=== PATIENT | male | born 1965 | race Caucasian/White ===

== ENCOUNTER 2018-10-02 19:55 | Emergency (ER) | payer OTHER ==
[2018-10-02] MEDS ORDERED: Acetaminophen 500 MG TAB ONE (20:37)
--- NOTE | 2018-10-02 21:30 | ULT ---
US Venous Doppler Lt Unilat History: [Pain. Edema. Redness.] Comparison: None. Findings: Real-time grayscale, color, and spectral analysis of the left lower extremity venous system was performed. The common femoral, femoral, proximal portions greater saphenous and deep femoral veins as well as the popliteal and posterior tibial veins were interrogated. Normal flow, augmentation, and compression. Impression: No deep venous thrombosis.
== END 2018-10-02 21:46 | disposition home or self-care (01) ==
LOC: ERS 19:55
DX: M79.89 Other specified soft tissue disorders (principal); B20 Human immunodeficiency virus [HIV] disease

== ENCOUNTER 2018-10-28 17:21 | Emergency (ER) | payer OTHER ==
--- NOTE | 2018-10-28 17:40 | RAD ---
Exam: XR Ankle Lt 3 View STANDARD HISTORY: Left ankle pain since twisting injury 2 days ago. COMPARISON: None FINDINGS: There is subcutaneous soft tissue swelling seen about the ankle bilaterally. No acute fracture, dislocation, or other acute osseous abnormality is identified. A plantar calcaneal enthesophyte is identified. Vascular calcifications are seen in the region of the tibial peroneal vessels. IMPRESSION: Subcutaneous soft tissue swelling without evidence of an acute osseous abnormality.
[2018-10-28 18:44] LABS: #Eosinphils 0.1 thou/uL (0.0-0.7); #Lymphocytes 1.7 thou/uL (1.20-3.40); #Monocytes 1.5 thou/uL (0.11-0.59); #Neutrophils 10.6 thou/uL (1.40-6.50); %Basophils 0.2 % (0.0-1.0); %Eosinophils 0.5 % (0.0-10.0); %Lymphocytes 12.1 % (21.0-51.0); %Monocytes 10.6 % (0.0-10.0); %Neutrophils 76.7 % (42.0-75.0); Hemoglobin 12.8 g/dL (14.0-18.0); Mean Corpuscular Hemoglobin 34.4 pg (27.0-31.0); Mean Platelet Volume 7.4 fL (7.4-10.4); Platelet Count 245 thou/uL (130-400); RBC Distribution Width 11.9 % (11.5-14.5); Red Blood Cell (RBC) Count 3.73 mill/uL (4.70-6.10); White Blood Cell (WBC) Count 13.9 thou/uL (4.8-10.8)
[2018-10-28 19:10] LABS: ALT (SGPT) 32 U/L (8-55); AST (SGOT) 19 U/L (5-34); Albumin 4.2 g/dL (3.5-5.0); Alkaline Phosphatase 70 U/L (40-150); Anion Gap 13 mmol/L (10-20); BUN (Urea Nitrogen) 19 mg/dL (8.4-25.7); Bilirubin, Total 0.4 mg/dL (0.2-1.2); Calc. Creatinine Clearance 0 mL/min (70-130); Calcium 9.6 mg/dL (7.8-10.44); Carbon Dioxide 22 mmol/L (22-29); Chloride 107 mmol/L (98-107); Estimated GFR-MDRD Greater than 90; Globulin 2.8 g/dL (2.4-3.5); Glucose 141 mg/dL (70-105); Potassium 3.7 mmol/L (3.5-5.1); Sodium 138 mmol/L (136-145)
--- NOTE | 2018-10-28 20:25 | ULT ---
EXAM: Left lower extremity venous Doppler HISTORY: left lower extremity edema and pain FINDINGS: Grayscale, color-flow, Doppler evaluation, spectral analysis of the left lower extremity venous struc tures is performed with 2-D imaging. The left common femoral, superficial femoral, popliteal, posterior tibial, proximal greater saphenous and profunda femoral veins are imaged. There is increased luminal echogenicity seen within the left lower extremity popliteal vein with decr eased lumen compressibility present. Color flow evaluation does demonstrate flow within the left popliteal vein. The remaining visualized deep venous structures left lower extremity demonstrate normal lumen jostin sibility and flow. IMPRESSION: 1. Nonocclusive DVT left lower extremity popliteal vein. 2. These findings were discussed with Agustina, the emergency department nurse by the technology officer vitaly at the termination of this examination.
[2018-10-28] MEDS ORDERED: Enoxaparin Sodium 100 MG/ML SYRINGE ONE (20:42)
[2018-10-28] MEDS ORDERED: Enoxaparin Sodium 30 MG/0.3 ML SYRINGE ONE (20:42)
[2018-10-28] MEDS ORDERED: Enoxaparin Sodium 40 MG/0.4 ML SYRINGE ONE (20:44)
[2018-10-28] MEDS ORDERED: Enoxaparin Sodium 60 MG/0.6 ML SYRINGE ONE (20:45)
== END 2018-10-28 21:07 | disposition home or self-care (01) ==
LOC: ERS 17:21
DX: I82.402 Acute embolism and thrombosis of unspecified deep veins of left lower extremity (principal); L03.116 Cellulitis of left lower limb; B20 Human immunodeficiency virus [HIV] disease
CPT/HCPCS: 36415; 80053; 83605; 85025; 85652; 86140; 96372; J1650

== ENCOUNTER 2019-01-06 14:42 | Emergency (ER) | payer OTHER ==
--- NOTE | 2019-01-06 18:30 | ULT ---
Left lower extremity venous duplex exam: HISTORY: Left leg pain and swelling. History of DVT. COMPARISON: None. FINDINGS: Real-time color Doppler evaluation of left lower extremity was performed from groin to calf . This includes evaluation the common femoral superficial and profunda femoral, saphenous, popliteal and posterior tibial veins. This shows a patent deep venous system. There is normal jostin sibility and augmentation. There is no evidence of DVT. IMPRESSION: No evidence of DVT of the left lower extremity.
[2019-01-06 19:14] LABS: #Eosinphils 0.2 thou/uL (0.0-0.7); #Lymphocytes 2.4 thou/uL (1.20-3.40); #Monocytes 0.9 thou/uL (0.11-0.59); #Neutrophils 5.9 thou/uL (1.40-6.50); %Eosinophils 1.8 % (0.0-10.0); %Monocytes 9.2 % (0.0-10.0); %Neutrophils 63.1 % (42.0-75.0); Hemoglobin 13.5 g/dL (14.0-18.0); Mean Corpuscular HGB CONC 33.8 g/dL (32.0-36.0); Mean Corpuscular Hemoglobin 33.3 pg (27.0-31.0); Mean Corpuscular Volume 98.4 fL (78.0-98.0); Mean Platelet Volume 6.9 fL (7.4-10.4); Platelet Count 267 thou/uL (130-400); RBC Distribution Width 12.7 % (11.5-14.5); Red Blood Cell (RBC) Count 4.05 mill/uL (4.70-6.10); White Blood Cell (WBC) Count 9.3 thou/uL (4.8-10.8)
[2019-01-06 19:34] LABS: ALT (SGPT) 47 U/L (8-55); AST (SGOT) 23 U/L (5-34); Albumin 4.4 g/dL (3.5-5.0); Alkaline Phosphatase 68 U/L (40-150); Anion Gap 13 mmol/L (10-20); BUN (Urea Nitrogen) 21 mg/dL (8.4-25.7); Bilirubin, Total 0.4 mg/dL (0.2-1.2); Calc. Creatinine Clearance 0 mL/min (70-130); Calcium 9.8 mg/dL (7.8-10.44); Carbon Dioxide 26 mmol/L (22-29); Chloride 103 mmol/L (98-107); Estimated GFR-MDRD 88; Globulin 3.2 g/dL (2.4-3.5); Glucose 109 mg/dL (70-105); Potassium 4.1 mmol/L (3.5-5.1); Protein, Total 7.6 g/dL (6.0-8.3); Sodium 138 mmol/L (136-145)
[2019-01-06 19:59] LABS: Bilirubin Negative (Negative); Blood, Urine Negative (Negative); Clarity Clear (Clear); Glucose, Urine (Dipstick) Normal (Negative); Leukocyte Negative Leu/uL (Negative); Nitrite Negative (Negative); Protein, Urine (Dipstick) 10 mg/dL (Neg-Trace); Urobilinogen 3 mg/dL (Less than 2)
== END 2019-01-06 20:22 | disposition home or self-care (01) ==
LOC: ERS 14:42
DX: M79.89 Other specified soft tissue disorders (principal); E11.9 Type 2 diabetes mellitus without complications; B20 Human immunodeficiency virus [HIV] disease; Z79.01 Long term (current) use of anticoagulants; Z79.899 Other long term (current) drug therapy; Z79.84 Long term (current) use of oral hypoglycemic drugs
CPT/HCPCS: 36415; 80053; 81003; 85025

== ENCOUNTER 2019-01-10 11:34 | Outpatient (CLI) | payer OTHER ==
--- NOTE | 2019-01-10 13:00 | ULT ---
EXAM: Bilateral upper extremity venous Doppler HISTORY: Bilateral arm and facial edema/swelling. FINDINGS: Grayscale, color-flow, Doppler evaluation, spectral analysis of the bilateral upper extremities venou s structures is performed with 2-D imaging. There is normal flow seen in the bilateral subclavian veins with normal lumen compressibility and flow seen within the bilateral internal jugular, axillary , and brachial veins. Flow is demonstrated in the bilateral ulnar and radial veins. Normal luminal compressibility and flow is seen within the bilateral upper extremity basilic and ceph alic veins. IMPRESSION: No evidence of a deep vein thrombosis in the visualized deep venous structures bilateral upper extrem ities.
== END 2019-01-10 11:35 | disposition home or self-care (01) ==
LOC: ULT 11:34
DX: R22.0 Localized swelling, mass and lump, head (principal)
CPT/HCPCS: 93970

== ENCOUNTER 2019-03-14 11:35 | Outpatient (CLI) | payer OTHER ==
--- NOTE | 2019-03-14 13:11 | CT ---
CT LEFT HIP: DATE: 03/14/2019. PROVIDED CLINICAL HISTORY: Left hip pain, arthritis. FINDINGS: There is diffuse joint space loss involving the left hip. There is multifocal articular cortical irr egularity and subchondral sclerosis with multiple subchondral cysts present. There is no gross osteo lytic change. There is mild acetabular protrusio. Osteophytes are seen about the hip. There is no evidence for a fracture. There is moderate left hip capsular distention. There is mild fatty infiltration involving the lateral and distal aspects of the left gluteus medius muscle. Vascular calcifications are seen. No lytic or blastic lesions of concern are evident. 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 POS: OFF
--- NOTE | 2019-03-14 16:02 | CT ---
CT guided left hip aspiration HISTORY: Bacterial arthritis. FINDINGS: After explaining the procedure and answering all questions, limited CT imaging the pelvis w as performed. Sterile technique, buffered local anesthesia, CT guidance, and a left anterolateral approach were used to carefully advance the tip of a 17-gauge trocar needle to the small pocket of fl uid at the left hip joint space. The needle was carefully guided immediately lateral to the common femoral artery, taking great care to avoid the femoral nerve. The needle was gently maneuvered in the area of joint fluid with vigorous aspiration. Approximately 1 cc of bloody liquid was aspirated and sent to laboratory for analysis. No additional fluid was able to be obtained. Needle was removed. Patient tolerated the procedure well and was dismissed in go od condition. IMPRESSION: Technically successful CT-guided aspiration left hip joint fluid. Pathology is pending.
== END 2019-03-14 11:36 | disposition home or self-care (01) ==
LOC: CT 11:35 → SDC 11:36
PROVIDERS: ATTEND Orthopaedic Surgery
DX: M00.852 Arthritis due to other bacteria, left hip (principal); M16.12 Unilateral primary osteoarthritis, left hip; M00.9 Pyogenic arthritis, unspecified; M25.852 Other specified joint disorders, left hip
CPT/HCPCS: 77012; 87070; 87205

== ENCOUNTER 2019-03-15 07:45 | Inpatient (IN) | payer OTHER ==
[2019-03-15 08:11] LABS: #Basophils 0.1 thou/uL (0.0-0.2); #Eosinphils 0.4 thou/uL (0.0-0.7); #Lymphocytes 4.1 thou/uL (1.20-3.40); #Monocytes 1.1 thou/uL (0.11-0.59); #Neutrophils 3.9 thou/uL (1.40-6.50); %Eosinophils 4.3 % (0.0-10.0); %Lymphocytes 42.8 % (21.0-51.0); %Monocytes 11.1 % (0.0-10.0); %Neutrophils 40.8 % (42.0-75.0); Hemoglobin 14.2 g/dL (14.0-18.0); Mean Corpuscular HGB CONC 33.2 g/dL (32.0-36.0); Mean Corpuscular Hemoglobin 32.7 pg (27.0-31.0); Mean Corpuscular Volume 98.3 fL (78.0-98.0); Mean Platelet Volume 7.6 fL (7.4-10.4); Platelet Count 264 thou/uL (130-400); RBC Distribution Width 12.4 % (11.5-14.5); Red Blood Cell (RBC) Count 4.33 mill/uL (4.70-6.10); White Blood Cell (WBC) Count 9.6 thou/uL (4.8-10.8)
[2019-03-15] MEDS ORDERED: Nitroglycerin 2% Ointment 1 INCH/1 GM Packet ONE (08:11)
[2019-03-15] MEDS ORDERED: Lorazepam 2 MG/ML VIAL ONE (08:11)
[2019-03-15] MEDS ORDERED: Aspirin Chewable 81 MG TAB ONE (08:11)
--- NOTE | 2019-03-15 08:17 | RAD ---
RADIOGRAPH CHEST 1 VIEW: DATE: 03/15/2019 HISTORY: 54-year-old male with chest pain and dyspnea. FINDINGS: There is no airspace density, pulmonary edema, or pneumothorax. The lateral costophrenic angles are n ot effaced. IMPRESSION: No acute pulmonary findings.
[2019-03-15] MEDS ORDERED: Lorazepam 2 MG/ML VIAL SLOW IVP SCH (08:30)
[2019-03-15] MEDS ORDERED: Nitroglycerin 2% Ointment 1 INCH/1 GM Packet TOP SCH (08:30)
[2019-03-15] MEDS ORDERED: Aspirin 325 MG TAB PO SCH (08:30)
[2019-03-15] MEDS ORDERED: Piperacillin/Tazobactam 4.5 GM VIAL ONE (08:33)
[2019-03-15 08:34] LABS: ALT (SGPT) 17 U/L (8-55); AST (SGOT) 16 U/L (5-34); Albumin 4.4 g/dL (3.5-5.0); Alkaline Phosphatase 86 U/L (40-110); Anion Gap 16 mmol/L (10-20); BUN (Urea Nitrogen) 16 mg/dL (8.4-25.7); Bilirubin, Total 0.6 mg/dL (0.2-1.2); Calc. Creatinine Clearance 0 mL/min (70-130); Calcium 9.9 mg/dL (7.8-10.44); Carbon Dioxide 21 mmol/L (22-29); Chloride 107 mmol/L (98-107); Estimated GFR-MDRD 72; Globulin 3.5 g/dL (2.4-3.5); Glucose 121 mg/dL (70-105); Potassium 3.8 mmol/L (3.5-5.1); Protein, Total 7.9 g/dL (6.0-8.3); Sodium 140 mmol/L (136-145)
--- NOTE | 2019-03-15 09:28 | CT ---
CT ANGIOGRAM THORAX WITH CONTRAST: (CTA pulmonary angiogram) DATE: 03/15/2019 HISTORY: 54-year-old male with elevated d-dimer and chest pain with diaphoresis. TECHNIQUE: IV injection of iodinated contrast. Scan acquisition timing attempted to coincide with iodinated contrast bolus reaching maximal density in pulmonary arteries. 3-D MIP reconstructions. FINDINGS: Mediastinal lipomatosis. Trachea and bilateral mainstem bronchi are patent and clear. No thoracic aor tic aneurysm or dissection. Bilateral pericardial fat pads. No pleural effusion or pneumothorax. No consolidation. Multiple slightly enlarged scattered mediastinal lymph nodes, nonspecific. No hilar ly mphadenopathy. No evidence of pulmonary thromboembolism. IMPRESSION: 1) no pulmonary thromboembolism. 2) no acute findings. 3) mediastinal lipomatosis.
[2019-03-15] MEDS ORDERED: ISOVUE-370 76%-LOCM 1 ML ONE (12:34)
[2019-03-15] MEDS ORDERED: Acetaminophen 325 MG TAB PO PRN (12:43)
[2019-03-15] MEDS ORDERED: Ondansetron ODT 4 MG TAB SL PRN (12:43)
[2019-03-15] MEDS ORDERED: Ondansetron PF 4 MG/2 ML Vial IVP PRN (12:43)
[2019-03-15 13:07] LABS: Troponin I 0.668 ng/mL (< 0.028)
[2019-03-15 13:12] VITALS: BMI 32.1
[2019-03-15] MEDS ORDERED: Enoxaparin Sodium 100 MG/ML SYRINGE SC SCH ×2 (14:00→21:00)
[2019-03-15] MEDS ORDERED: Enoxaparin Sodium 120 MG/0.8 ML SYRINGE SC SCH (14:00)
[2019-03-15 15:23] LABS: Troponin I 1.213 ng/mL (< 0.028)
[2019-03-15] MEDS ORDERED: Nitroglycerin 0.4 MG TAB (25 Tab Bottle) SL PRN (15:25)
[2019-03-15] MEDS: Morphine 4 MG/ML VIAL SLOW IVP PRN (16:14)
[2019-03-15] MEDS ORDERED: Morphine 4 MG/ML VIAL SLOW IVP SCH ×2 (19:15→19:30)
[2019-03-15] MEDS: Nitroglycerin 2% Ointment 1 INCH/1 GM Packet TOP SCH (19:41)
[2019-03-15] MEDS: Enoxaparin Sodium 120 MG/0.8 ML SYRINGE SC SCH (20:43)
--- NOTE | 2019-03-15 21:09 | HP ---
PRIMARY CARE PHYSICIAN: Dr. Basurto in [place]. CHIEF COMPLAINT: Chest pain. HISTORY OF PRESENT ILLNESS: Mr. Ramirez is a 54-year-old man with a past medical history of diabetes mellitus type 2; HIV that he does not want his family knowing about; DVT; who had presented to the ED earlier today due to chest pain that had started around 7:00 a.m. this morning. He states once the chest pain came on, he had become diaphoretic and is slightly lightheaded. He states that the pain came on suddenly and had felt more of a pressure or similar to someone pushing on his chest. His initial workup included a portable chest x-ray, which was found to be normal. He also underwent a CTA of the chest, which showed no pulmonary thromboembolism or no acute findings at this time. The patient's initial troponin was found to be normal at less than 0.010, however, this had trended out and actually trended up to 0.668 and then to 1.213. At that time, the patient was then given IV Lovenox 1 mg/kg x1, and he was treated with topical nitroglycerin and aspirin in the ED. The patient's symptoms slowly improved over the next 30 minutes and now, the patient is currently stable. His blood pressure and other vital signs remained stable, and currently, the patient denies fever, chills, headache, blurred vision, dizziness, palpitations, shortness of breath, abdominal pain, nausea, or vomiting. He does appear to have slight chest discomfort; however, this has been improving. REVIEW OF SYSTEMS: All other systems reviewed and found to be negative unless mentioned in the HPI. PAST MEDICAL HISTORY: DVT that was treated recently, and currently he is off all anticoagulation, diabetes mellitus type 2, and HIV, which is currently under treatment. The patient is compliant with treatment, however, does not want his family knowing. PAST SURGICAL HISTORY: Left wrist ORIF, right leg surgery, and reconstruction of his left ear. The patient was scheduled for a total knee replacement on 03/25/2019. PSYCHIATRIC HISTORY: None. SOCIAL HISTORY: The patient lives at home with his family. Denies any alcohol, tobacco, or illicit drug use. KNOWN ALLERGIES: No known drug allergies. CURRENT HOME MEDICATIONS: 1. Finasteride 5 mg daily. 2. Tivicay 50 mg daily. 3. Prezista 800 mg daily. 4. Furosemide 20 mg daily as needed for edema. 5. ProAir HFA inhaler 2 puffs inhalation every 4 to 6 hours as needed for shortness of breath or wheezing. 6. Norvir 100 mg once daily. 7. B-complex one tablet oral 3 times daily. PHYSICAL EXAMINATION: VITAL SIGNS: Blood pressure 128/92, pulse 81, respirations 18, temperature 98.2, O2 saturation 98% on room air. GENERAL: The patient is awake, alert, and oriented x3. He is currently lying comfortably in bed and in no acute distress. His family is at bedside. HEENT: Atraumatic and normocephalic. Pupils are round reactive to light. Extraocular muscles intact. Moist mucous membranes noted. NECK: Soft and supple. Trachea midline. CARDIOVASCULAR: Positive S1 and S2. Regular rate and rhythm. No murmur auscultated. RESPIRATORY: Clear to auscultation bilaterally. No wheezes, rales, or rhonchi. ABDOMEN: Soft, nontender. Bowel sounds present. MUSCULOSKELETAL: Moves all extremities equal. Pedal and radial pulses 2+ bilaterally. No edema noted. NEUROLOGIC: Cranial nerves 2 through 12 grossly intact. No focal deficits noted. Speech intact and normal. Gait not assessed. SKIN: Warm, dry, and intact. No rashes. No ulceration noted. PSYCHIATRIC: Good mood and affect. LABORATORY DATA: WBC 9.6, RBC 4.33, hemoglobin 14.2, hematocrit 42.6, platelets 264. D-dimer 1.50. Sodium 140, potassium 3.8, anion gap 16, BUN 16, creatinine 1.07, estimated GFR 72, glucose 121, AST 16, ALT 17. Troponin less than 0.010, 0.668, and 1.213. DIAGNOSTIC IMAGING: Portable chest x-ray showed no acute pulmonary findings. CTA of chest showed no pulmonary thromboembolism with no acute findings. ASSESSMENT AND PLAN: 1. [id number] myocardial infarction. The patient's cardiac enzymes have been trending upward with the last being 1.2. The patient was treated with a full dose of Lovenox 1 mg/kg. He was given a full dose aspirin and nitroglycerin in the ED. We will also maintain the patient with sublingual nitroglycerin as needed for any further chest pain. We will also give him some IV morphine as needed for any breakthrough pain. We will monitor blood pressure and other vital signs closely and a consult for Dr. Luu was placed at this time. His EKG is showing normal sinus rhythm. 2. History of diabetes mellitus type 2, currently not on any home medications for this. He states he used to in the past, however, has not needed it. 3. History of human immunodeficiency virus, currently undergoing treatment. He does not want his family knowing about this diagnosis and he asks us to not tell them. 4. Deep venous thrombosis and gastrointestinal prophylaxis. CODE STATUS: Full code. DISPOSITION: Pending further workup, clinical findings. Job ID: [id number]
[2019-03-16] MEDS: Morphine 4 MG/ML VIAL SLOW IVP PRN ×4 (00:16→20:27)
[2019-03-16] MEDS: Nitroglycerin 2% Ointment 1 INCH/1 GM Packet TOP SCH ×3 (05:06→18:53)
[2019-03-16 05:48] LABS: #Basophils 0.1 thou/uL (0.0-0.2); #Eosinphils 0.4 thou/uL (0.0-0.7); #Lymphocytes 2.3 thou/uL (1.20-3.40); #Monocytes 0.9 thou/uL (0.11-0.59); #Neutrophils 4.2 thou/uL (1.40-6.50); %Basophils 0.8 % (0.0-1.0); %Eosinophils 5.1 % (0.0-10.0); %Lymphocytes 29.3 % (21.0-51.0); %Monocytes 11.9 % (0.0-10.0); %Neutrophils 52.9 % (42.0-75.0); Hemoglobin 14.2 g/dL (14.0-18.0); Mean Corpuscular HGB CONC 33.7 g/dL (32.0-36.0); Mean Corpuscular Hemoglobin 33.4 pg (27.0-31.0); Mean Corpuscular Volume 99.1 fL (78.0-98.0); Mean Platelet Volume 7.6 fL (7.4-10.4); Platelet Count 231 thou/uL (130-400); RBC Distribution Width 12.4 % (11.5-14.5); Red Blood Cell (RBC) Count 4.26 mill/uL (4.70-6.10); White Blood Cell (WBC) Count 7.8 thou/uL (4.8-10.8)
[2019-03-16 06:10] LABS: Anion Gap 16 mmol/L (10-20); BUN (Urea Nitrogen) 13 mg/dL (8.4-25.7); Calc. Creatinine Clearance 160 mL/min (70-130); Calcium 9.6 mg/dL (7.8-10.44); Carbon Dioxide 19 mmol/L (22-29); Cardiac Risk 5.4 (Less than 4.5); Chloride 107 mmol/L (98-107); Cholesterol 210 mg/dl (< 200 Desired); Estimated GFR-MDRD Greater than 90; Glucose 92 mg/dL (70-105); HDL Cholesterol 39 mg/dL (>60 Neg Risk); LDL Cholesterol, Calculated 152 mg/dL; Potassium 4.2 mmol/L (3.5-5.1); Sodium 138 mmol/L (136-145); Triglycerides 94 mg/dL (Less than 150)
[2019-03-16] MEDS ORDERED: FLU VACC QS2019-20(6MOS UP)/PF 60 MCG/0.5 ML SYRINGE IM ONE (07:30)
[2019-03-16] MEDS: Enoxaparin Sodium 120 MG/0.8 ML SYRINGE SC SCH ×2 (09:52→20:09)
[2019-03-16] MEDS ORDERED: Communication Order-Pharmacy FS SCH (10:15)
--- NOTE | 2019-03-16 11:50 | CON ---
DATE OF CONSULTATION: HISTORY: Boubacar Ramirez is a 54-year-old Latin-[place] male, who presented yesterday with chest discomfort. He denies any previous episodes of chest pain. At 7:00 a.m. yesterday morning, he had intense chest pressure associated with diaphoresis, shortness of breath, and nausea. In the emergency room, he was given Ativan 1 mg IV, nitropaste 1 inch, and 324 mg of chewable aspirin. His chest discomfort gradually subsided. Since admission, he occasionally has some episodes of chest discomfort that are short lived. He has been found to have abnormal troponin I. He underwent CTA of the chest, which revealed no evidence of pulmonary thromboembolism. His pain lasted approximately 30 minutes. PAST MEDICAL HISTORY: Deep venous thrombosis of the left leg diagnosed in October 2018. He was placed on Eliquis 5 mg b.i.d. and was treated for his DVT for approximately 3 months and the Eliquis was stopped. He has diabetes. HIV, which he does not wish his family to know about and is currently under treatment. PAST SURGICAL HISTORY: Left wrist ORIF, right leg surgery, reconstruction of left ear. He is scheduled for a left total hip replacement on March 25, 2019. SOCIAL HISTORY: He does not smoke or drink. FAMILY HISTORY: Both mother and father have myocardial infarctions. MEDICATIONS: 1. Norvir 250 b.i.d. 2. Folgard tablet daily. 3. Prezista one tab at bedtime. 4. Finasteride 5 mg daily. 5. Furosemide 20 mg daily p.r.n. 6. ProAir inhaler 2 puffs q.4-6 hours p.r.n. REVIEW OF SYSTEMS: Twelve-point review of systems is otherwise unremarkable. PHYSICAL EXAMINATION: VITAL SIGNS: Blood pressure 106/66, pulse of 84. HEENT: PERRL. NECK: Supple. CHEST: Clear. CARDIAC: S1 and S2 normal without any S3, S4, or murmurs. Carotid upstrokes normal without bruits. ABDOMEN: Normal bowel sounds without tenderness. EXTREMITIES: Revealed no clubbing, cyanosis, or edema. NEUROLOGIC: Grossly intact. SKIN: Warm and dry. LABORATORY DATA: EKG revealed normal sinus rhythm with left axis deviation and probable old inferior infarction with Q-waves in III and aVF. Hemoglobin 14.2, hematocrit 42.2, white count 7800, and platelets 231,000. D-dimer 1.50. Sodium 138, potassium 4.2, chloride 107, carbon dioxide 19, BUN 13, and creatinine 0.85. Troponin I is up to 1.213. Cholesterol 210, triglycerides 94, HDL 39, and LDL 152. IMPRESSION: 1. Moh-EK-wamfkfrms myocardial infarction. He has developed some T-wave changes on the monitor and another EKG will be repeated. 2. Diabetes. 3. Hypercholesterolemia, newly diagnosed. 4. Positive family history. 5. Human immunodeficiency virus, which the patient does not wish the family to know about. 6. History of deep venous thrombosis of left popliteal vein, treated for approximately 3 months with Eliquis. He is off that now. 7. The patient is scheduled for left total hip replacement on March 25, 2019, which obviously will be delayed. PLAN: The patient will be started on atorvastatin 40 mg daily. Ecotrin one daily in that he did not get a dose today but only when he came to the ER yesterday. He continues to intermittently have very mild chest discomfort and his nitropaste will be increased to 2 inches q.6 hours. EKG will be repeated. It is recommended that he undergo cardiac catheterization in the morning. Risks and benefits discussed with the patient's family including , myocardial infarction, dye reaction, vascular injury, CVA, transfusion, limb loss, renal loss, etc. We discussed vascular dementia and possible need for surgery, etc. We discussed stent placement with additional risk of , myocardial infarction, emergent CABG, restenosis, stent thrombosis, vessel perforation, etc. Since he wishes left total hip replacement in the near future, only a bare-metal stent will be placed to limit his amount of time that he would need Plavix. He understands and agrees to proceed. Job ID: [id number] MTDD
[2019-03-16] MEDS: Acetaminophen 325 MG TAB PO PRN ×2 (15:00→18:53)
[2019-03-16] MEDS ORDERED: Prevnar 13-Val Conj/PF 0.5 ML SYRINGE IM ONE (15:15)
--- NOTE | 2019-03-16 17:55 | PDOC.HOSPP ---
- Subjective Encounter Date: 03/16/19 Encounter Time: 08:00 Subjective: Pt seen for followup re: NSTEMI. Reports chest pain is better. - Objective Vital Signs & Weight: Vital Signs (12 hours) Temp Pulse Resp BP Pulse Ox 03/16/19 15:13 98.8 F 87 14 117/64 95 03/16/19 11:36 98.5 F 89 14 115/67 94 L 03/16/19 08:00 98 03/16/19 07:41 98.5 F 84 14 106/66 98 Weight Weight 250 lb 6.4 oz Result Diagrams: 03/16/19 05:20 03/16/19 05:20 Additional Labs: labs and MARs reviewed by me EKG Reviewed by me: Yes (Tele: NSR) Hospitalist ROS - Review of Systems Respiratory: reports: SOB with excertion Cardiovascular: reports: chest pain. denies: palpitations, orthopnea, paroxysmal noc. dyspnea, edema, light headedness Gastrointestinal: denies: nausea, vomiting, abdominal pain, diarrhea, constipation, melena, hematochezia - Medication Medications: Active Medications Generic Name Dose Route Start Last Admin Trade Name Freq PRN Reason Stop Dose Admin Acetaminophen 650 mg 03/16/19 14:12 03/16/19 15:00 Tylenol PO 650 mg Q4H PRN Administration Headache/Fever or Pain Enoxaparin Sodium 110 mg 03/15/19 21:00 03/16/19 09:52 Lovenox SC 03/16/19 23:59 110 mg BID TATE Administration Morphine Sulfate 4 mg 03/15/19 15:25 03/16/19 15:07 Morphine SLOW IVP 4 mg Q4H PRN Administration Pain Nitroglycerin 0.4 mg 03/15/19 15:25 03/15/19 18:45 Nitrostat SL 0.4 mg Q5MIN PRN Administration Chest Pain Nitroglycerin 2 inch 03/16/19 12:00 03/16/19 12:40 Nitro-Bid 2% Ointment TOP 2 inch Q6HR TATE Administration Sodium Chloride 10 ml 03/16/19 09:00 03/16/19 09:53 Flush - Normal Saline IVF 10 ml Q12HR TATE Administration - Exam General - other findings: Obese Eye: anicteric sclera ENT: moist mucosa Neck: supple, no thyromegaly Heart: RRR, no rubs Respiratory: CTAB Gastrointestinal: soft, non-tender Extremities: no clubbing Neurological: no weakness Musculoskeletal: normal strength Psychiatric: normal affect, normal behavior Hosp A/P (1) NSTEMI (non-ST elevated myocardial infarction) Code(s): I21.4 - NON-ST ELEVATION (NSTEMI) MYOCARDIAL INFARCTION Status: Acute (2) BPH (benign prostatic hyperplasia) Code(s): N40.0 - BENIGN PROSTATIC HYPERPLASIA WITHOUT LOWER URINRY TRACT SYMP Status: Chronic (3) HIV infection Code(s): B20 - HUMAN IMMUNODEFICIENCY VIRUS [HIV] DISEASE Status: Chronic - Plan Pt is on therapeutic Lovenox. Plan for cath tomorrow. Continue home medications for BPH and HIV infection.
[2019-03-16] MEDS: Atorvastatin Calcium 40 MG TAB PO SCH (20:09)
[2019-03-17] MEDS: Nitroglycerin 2% Ointment 1 INCH/1 GM Packet TOP SCH ×3 (00:51→17:37)
[2019-03-17] MEDS: Morphine 4 MG/ML VIAL SLOW IVP PRN ×4 (00:55→23:21)
[2019-03-17] MEDS ORDERED: Sodium Chloride 0.9% 1,000 ML IV SCH ×2 (06:00→13:59)
[2019-03-17] MEDS: Acetaminophen 325 MG TAB PO PRN ×2 (06:16→19:42)
[2019-03-17 06:31] LABS: #Basophils 0.1 thou/uL (0.0-0.2); #Eosinphils 0.5 thou/uL (0.0-0.7); #Monocytes 0.9 thou/uL (0.11-0.59); #Neutrophils 3.8 thou/uL (1.40-6.50); %Basophils 0.9 % (0.0-1.0); %Eosinophils 5.8 % (0.0-10.0); %Lymphocytes 36.4 % (21.0-51.0); %Monocytes 10.9 % (0.0-10.0); %Neutrophils 46.1 % (42.0-75.0); Hemoglobin 14.4 g/dL (14.0-18.0); Mean Corpuscular HGB CONC 33.8 g/dL (32.0-36.0); Mean Corpuscular Hemoglobin 33.1 pg (27.0-31.0); Mean Corpuscular Volume 98.1 fL (78.0-98.0); Mean Platelet Volume 7.4 fL (7.4-10.4); Platelet Count 281 thou/uL (130-400); RBC Distribution Width 12.2 % (11.5-14.5); Red Blood Cell (RBC) Count 4.36 mill/uL (4.70-6.10); White Blood Cell (WBC) Count 8.2 thou/uL (4.8-10.8)
[2019-03-17 06:49] LABS: Anion Gap 16 mmol/L (10-20); BUN (Urea Nitrogen) 12 mg/dL (8.4-25.7); Calc. Creatinine Clearance 130 mL/min (70-130); Calcium 9.7 mg/dL (7.8-10.44); Carbon Dioxide 22 mmol/L (22-29); Chloride 103 mmol/L (98-107); Estimated GFR-MDRD 74; Glucose 122 mg/dL (70-105); Magnesium 1.9 mg/dL (1.6-2.6); Potassium 4.2 mmol/L (3.5-5.1); Sodium 137 mmol/L (136-145)
[2019-03-17] MEDS ORDERED: Aspirin 325 mg Enteric Coated Tablet PO SCH (09:00)
[2019-03-17] MEDS ORDERED: Heparin 10,000 UNITS/1 ML VIAL ONE (11:38)
[2019-03-17] MEDS ORDERED: Lidocaine 1% (PF) 30 ML VIAL ONE (11:38)
[2019-03-17] MEDS ORDERED: Midazolam HCl 2 mg/2 ml Vial ONE (12:52)
[2019-03-17] MEDS ORDERED: Fentanyl 100 MCG/2 ML VIAL ONE (12:53)
[2019-03-17] MEDS ORDERED: Bivalirudin 250 MG VIAL ONE (13:18)
[2019-03-17] MEDS ORDERED: TICAGRELOR 90 MG TABLET ONE (13:31)
[2019-03-17] MEDS ORDERED: Morphine 4 MG/ML VIAL ONE (14:13)
[2019-03-17] MEDS ORDERED: Nitroglycerin 0.4 MG TAB (25 Tab Bottle) ONE (14:25)
[2019-03-17] MEDS ORDERED: Acetaminophen 325 MG TAB ONE (14:25)
[2019-03-17] MEDS ORDERED: Morphine 2 MG/ML SYRINGE ONE (14:53)
[2019-03-17] MEDS ORDERED: Mag-Al 1200 mg/1200 mg/30 ML UDCUP ONE (14:59)
[2019-03-17] MEDS ORDERED: Morphine 2 MG/ML SYRINGE SLOW IVP SCH (15:00)
[2019-03-17] MEDS ORDERED: Mag-Al 1200 mg/1200 mg/30 ML UDCUP PO SCH (15:00)
--- NOTE | 2019-03-17 18:06 | PDOC.HOSPP ---
- Subjective Encounter Date: 03/17/19 Encounter Time: 08:00 Subjective: Pt seen for followup re: NSTEMI. Had chest pain today AM, improved with morphine. - Objective Vital Signs & Weight: Vital Signs (12 hours) Temp Pulse Resp BP Pulse Ox 03/17/19 12:00 98.2 F 75 20 96/59 L 96 03/17/19 08:00 98.4 F 76 20 103/70 96 Weight Weight 250 lb 6.4 oz I&O: 03/16/19 03/17/19 03/18/19 06:59 06:59 06:59 Intake Total 720 Balance 720 Result Diagrams: 03/17/19 06:15 03/17/19 06:15 Additional Labs: Labs and MARs reviewed by nc Hospitalist ROS - Review of Systems Cardiovascular: reports: chest pain. denies: palpitations, orthopnea, paroxysmal noc. dyspnea, edema, light headedness Gastrointestinal: denies: nausea, vomiting, abdominal pain, diarrhea, constipation, melena, hematochezia - Medication Medications: Active Medications Generic Name Dose Route Start Last Admin Trade Name Freq PRN Reason Stop Dose Admin Acetaminophen 650 mg 03/16/19 14:12 03/17/19 06:16 Tylenol PO 650 mg Q4H PRN Administration Headache/Fever or Pain Atorvastatin Calcium 40 mg 03/16/19 21:00 03/16/19 20:09 Lipitor PO 40 mg HS TATE Administration Sodium Chloride 1,000 mls @ 125 mls/hr 03/17/19 13:59 03/17/19 17:35 Normal Saline 0.9% IV 03/17/19 20:00 Not Given .Q8H TATE Morphine Sulfate 4 mg 03/15/19 15:25 03/17/19 08:13 Morphine SLOW IVP 4 mg Q4H PRN Administration Pain Nitroglycerin 0.4 mg 03/15/19 15:25 03/15/19 18:45 Nitrostat SL 0.4 mg Q5MIN PRN Administration Chest Pain Sodium Chloride 10 ml 03/16/19 09:00 03/17/19 08:42 Flush - Normal Saline IVF Not Given Q12HR TATE - Exam General Appearance: NAD Eye: anicteric sclera ENT: moist mucosa Neck: supple, no JVD Heart: RRR, no rubs Respiratory: CTAB Gastrointestinal: soft, non-tender Skin: no rashes Psychiatric: normal affect Hosp A/P (1) NSTEMI (non-ST elevated myocardial infarction) Code(s): I21.4 - NON-ST ELEVATION (NSTEMI) MYOCARDIAL INFARCTION Status: Acute (2) BPH (benign prostatic hyperplasia) Code(s): N40.0 - BENIGN PROSTATIC HYPERPLASIA WITHOUT LOWER URINRY TRACT SYMP Status: Chronic (3) HIV infection Code(s): B20 - HUMAN IMMUNODEFICIENCY VIRUS [HIV] DISEASE Status: Chronic - Plan plan discussed w/ family For cath today. Pt is on therapeutic Lovenox. BPH and HIV infection stable.
[2019-03-17] MEDS: Atorvastatin Calcium 40 MG TAB PO SCH (19:43)
[2019-03-17] MEDS: TICAGRELOR 90 MG TABLET PO SCH (20:24)
[2019-03-17] MEDS ORDERED: Iopamidol 370 76% 100 ML VIAL ONE (20:44)
[2019-03-17] MEDS ORDERED: Iopamidol 370 76% 50 ML VIAL FS ONE (20:44)
--- NOTE | 2019-03-17 23:17 | EKG ---
Test Reason : Blood Pressure : / mmHG Vent. Rate : 090 BPM Atrial Rate : 090 BPM P-R Int : 176 ms QRS Dur : 090 ms QT Int : 374 ms P-R-T Axes : 048 -35 017 degrees QTc Int : 457 ms Sinus rhythm Left axis deviation Abnormal ECG Confirmed by MIKAYLA MENDOZA M.D. ([id number]) on 03/17/2019 11:17:33 PM Referred By: YOUNG Confirmed By:MIKAYLA MENDOZA M.D.
--- NOTE | 2019-03-17 23:19 | EKG ---
Test Reason : STAT Blood Pressure : / mmHG Vent. Rate : 101 BPM Atrial Rate : 101 BPM P-R Int : 174 ms QRS Dur : 092 ms QT Int : 348 ms P-R-T Axes : 048 -54 024 degrees QTc Int : 451 ms Sinus tachycardia Possible Left atrial enlargement Left anterior fascicular block Inferior infarct , age undetermined Abnormal ECG When compared with ECG of 15-MAR-2019 10:13, No significant change was found Confirmed by MIKAYLA MENDOZA M.D. ([id number]) on 03/17/2019 11:18:36 PM Referred By: CARLOS Confirmed By:MIKAYLA MENDOZA M.D.
[2019-03-18 05:33] LABS: #Eosinphils 0.3 thou/uL (0.0-0.7); #Lymphocytes 1.5 thou/uL (1.20-3.40); #Monocytes 0.8 thou/uL (0.11-0.59); %Basophils 0.7 % (0.0-1.0); %Lymphocytes 22.4 % (21.0-51.0); %Monocytes 12.6 % (0.0-10.0); %Neutrophils 60.4 % (42.0-75.0); Hemoglobin 13.3 g/dL (14.0-18.0); Mean Corpuscular HGB CONC 33.9 g/dL (32.0-36.0); Mean Corpuscular Hemoglobin 33.3 pg (27.0-31.0); Mean Corpuscular Volume 98.1 fL (78.0-98.0); Mean Platelet Volume 7.6 fL (7.4-10.4); Platelet Count 232 thou/uL (130-400); RBC Distribution Width 12.3 % (11.5-14.5); Red Blood Cell (RBC) Count 3.98 mill/uL (4.70-6.10); White Blood Cell (WBC) Count 6.6 thou/uL (4.8-10.8)
[2019-03-18 05:50] LABS: ALT (SGPT) 19 U/L (8-55); AST (SGOT) 22 U/L (5-34); Albumin 3.7 g/dL (3.5-5.0); Alkaline Phosphatase 70 U/L (40-110); Anion Gap 12 mmol/L (10-20); BUN (Urea Nitrogen) 11 mg/dL (8.4-25.7); Bilirubin, Total 0.5 mg/dL (0.2-1.2); Calc. Creatinine Clearance 152 mL/min (70-130); Calcium 9.2 mg/dL (7.8-10.44); Carbon Dioxide 23 mmol/L (22-29); Chloride 108 mmol/L (98-107); Estimated GFR-MDRD 89; Globulin 3.1 g/dL (2.4-3.5); Glucose 98 mg/dL (70-105); Potassium 4.1 mmol/L (3.5-5.1); Protein, Total 6.8 g/dL (6.0-8.3); Sodium 139 mmol/L (136-145)
[2019-03-18] MEDS ORDERED: Aspirin Chewable 81 MG TAB PO SCH (09:00)
[2019-03-18] MEDS ORDERED: Aspirin 81 mg Enteric Coated Tablet PO SCH (09:00)
[2019-03-18] MEDS: TICAGRELOR 90 MG TABLET PO SCH (09:14)
[2019-03-18] MEDS: Acetaminophen 325 MG TAB PO PRN (09:21)
[2019-03-18] MEDS: Morphine 4 MG/ML VIAL SLOW IVP PRN (10:10)
[2019-03-18 11:19] VITALS: TEMP 98.1
[2019-03-18] MEDS ORDERED: Midazolam HCl 2 mg/2 ml Vial ONE (11:55)
[2019-03-18] MEDS ORDERED: Fentanyl 100 MCG/2 ML VIAL ONE (11:55)
[2019-03-18 14:53] VITALS: BP 126/83
--- NOTE | 2019-03-18 22:26 | DIS ---
DATE OF ADMISSION: 03/15/2019 DATE OF DISCHARGE: 03/18/2019 PRIMARY CARE PROVIDER: Charlie Rossi, DISCHARGE DIAGNOSES: 1. Non ST-elevation myocardial infarction. 2. Dyslipidemia. CONDITION OF PATIENT ON THE DAY OF DISCHARGE: Stable. I assessed Mr. Ramirez on the day of discharge. He denies any chest pain or shortness of breath. Vital signs are stable. S1 and S2 are heard, regular. Lungs are clear to auscultation bilaterally. CONSULTATIONS DURING THIS HOSPITALIZATION: Cardiology, Dr. Luu. DISCHARGE MEDICATIONS: 1. Prezista one tablet at bedtime. 2. Norvir 250 mg b.i.d. 3. Folgard one tablet daily. 4. Aspirin 81 mg daily. 5. Lipitor 40 mg at bedtime. 6. Brilinta 90 mg 2 times a day for 1 month. 7. [place] p.r.n. FOLLOWUP APPOINTMENTS: The patient is advised to follow up with his primary care provider in [address] Luu in 3 to 4 weeks time. HOSPITAL COURSE: Mr. Ramirez is a pleasant 54-year-old gentleman, who was admitted to [facility] on March 15, 2019, for chest pain. He was found to have non ST-elevation myocardial infarction. He was seen by Cardiology Service. He had cardiac catheterization on March 17. He was found to have one-vessel coronary artery disease in the LAD. He successfully underwent PCI/bare metal stent of the proximal left anterior descending coronary artery. He has been advised aspirin and Brilinta for one month. After one month, Brilinta should be stopped. He can undergo his elective hip surgery in 5-6 weeks. During this hospitalization, he had triglycerides 94, cholesterol 210, LDL cholesterol 152, and HDL cholesterol 39. On the day of discharge, he has white count 6600, hemoglobin 13.3, platelet count 232,000, sodium 139, potassium 4.1, and creatinine 0.89. Many thanks for allowing me to participate in your patient's care. Please feel free to contact me with any questions or concerns. Please note that the patient had mediastinal lipomatosis seen on CT angiogram of the chest. He was advised to follow up with his primary care provider for the same. DISCHARGE DESTINATION: Home. TIME SPENT: Total amount of time spent coordinating this discharge: 32 minutes. Job ID: [id number]
--- NOTE | 2019-03-21 10:00 | EKG ---
Test Reason : POST STENTS X 2 Blood Pressure : / mmHG Vent. Rate : 069 BPM Atrial Rate : 069 BPM P-R Int : 182 ms QRS Dur : 102 ms QT Int : 436 ms P-R-T Axes : 055 -45 003 degrees QTc Int : 467 ms Normal sinus rhythm Left anterior fascicular block Cannot rule out Inferior infarct (cited on or before 15-MAR-2019) T wave abnormality, consider anterolateral ischemia Abnormal ECG Confirmed by GEM RIOS MD ([id number]) on 03/21/2019 9:59:32 AM Referred By: YOUNG Confirmed By:GEM RIOS MD
== END 2019-03-18 12:14 | disposition home or self-care (01) | DRG 249 ==
LOC: ERS 07:45 → OBSVTOIN 12:13 → 2SW 12:13
PROVIDERS: ADMIT Internal Medicine; ATTEND Internal Medicine
PROC: 02703EZ Dilation of Coronary Artery, One Artery with Two Intraluminal Devices, Percutaneous Approach (ICD-10-PCS; principal; 2019-03-17)
PROC: 4A023N7 Measurement of Cardiac Sampling and Pressure, Left Heart, Percutaneous Approach (ICD-10-PCS; 2019-03-17)
PROC: B2111ZZ Fluoroscopy of Multiple Coronary Arteries using Low Osmolar Contrast (ICD-10-PCS; 2019-03-17)
PROC: B2151ZZ Fluoroscopy of Left Heart using Low Osmolar Contrast (ICD-10-PCS; 2019-03-17)
DX: I21.4 Non-ST elevation (NSTEMI) myocardial infarction (principal); E11.9 Type 2 diabetes mellitus without complications; Z21 Asymptomatic human immunodeficiency virus [HIV] infection status; E78.00 Pure hypercholesterolemia, unspecified; N40.0 Benign prostatic hyperplasia without lower urinary tract symptoms; Z86.718 Personal history of other venous thrombosis and embolism; Z79.899 Other long term (current) drug therapy; Z79.84 Long term (current) use of oral hypoglycemic drugs
CPT/HCPCS: 36415; 71045; 71275; 77012; 80048; 80053; 80061; 83735; 84484; 85025; 85347; 85379; 87070; 87205; 92928; 93005; 93010; 93458; 93798; 96374; 99152; 99153; C1769; C1876; C1887; J0583; J1644; J1650; J2001; J2060; J2250; J2270; J2543; J3010; Q9966; Q9967

== ENCOUNTER 2019-03-24 21:39 | Observation (INO) | payer OTHER ==
[2019-03-24 22:09] LABS: #Basophils 0.1 thou/uL (0.0-0.2); #Eosinphils 0.5 thou/uL (0.0-0.7); #Lymphocytes 2.9 thou/uL (1.20-3.40); #Neutrophils 4.7 thou/uL (1.40-6.50); %Basophils 0.9 % (0.0-1.0); %Monocytes 10.3 % (0.0-10.0); %Neutrophils 51.8 % (42.0-75.0); Hemoglobin 14.3 g/dL (14.0-18.0); Mean Corpuscular HGB CONC 33.7 g/dL (32.0-36.0); Mean Corpuscular Hemoglobin 32.6 pg (27.0-31.0); Mean Corpuscular Volume 96.7 fL (78.0-98.0); Mean Platelet Volume 7.3 fL (7.4-10.4); Platelet Count 319 thou/uL (130-400); RBC Distribution Width 11.9 % (11.5-14.5); Red Blood Cell (RBC) Count 4.39 mill/uL (4.70-6.10); White Blood Cell (WBC) Count 9.2 thou/uL (4.8-10.8)
--- NOTE | 2019-03-24 22:28 | RAD ---
Chest AP view INDICATION: Chest pain COMPARISON: March 15, 2019 FINDINGS: Lungs:The lungs are clear Cardiac silhouette:The cardiomediastinal silhouette appears within normal limits. Pulmonary vasculature:Normal Pleural spaces:No pleural effusion or pneumothorax is demonstrated. Upper abdomen:No abnormality seen. Osseous structures: No acute osseous abnormality. Additional findings:None. IMPRESSION: No acute cardiopulmonary abnormality.
[2019-03-24 22:31] LABS: ALT (SGPT) 22 U/L (8-55); AST (SGOT) 19 U/L (5-34); Albumin 4.5 g/dL (3.5-5.0); Alkaline Phosphatase 97 U/L (40-110); Anion Gap 13 mmol/L (10-20); BUN (Urea Nitrogen) 14 mg/dL (8.4-25.7); Bilirubin, Total 0.6 mg/dL (0.2-1.2); CK (CPK) 47 U/L (30-200); Calc. Creatinine Clearance 0 mL/min (70-130); Carbon Dioxide 23 mmol/L (22-29); Chloride 107 mmol/L (98-107); Estimated GFR-MDRD 63; Globulin 3.8 g/dL (2.4-3.5); Glucose 109 mg/dL (70-105); Lipase 54 U/L (8-78); Potassium 3.8 mmol/L (3.5-5.1); Protein, Total 8.3 g/dL (6.0-8.3); Sodium 139 mmol/L (136-145)
[2019-03-24] MEDS ORDERED: Morphine 4 MG/ML VIAL ONE (22:37)
[2019-03-24] MEDS ORDERED: Ondansetron PF 4 MG/2 ML Vial ONE (22:38)
[2019-03-24] MEDS ORDERED: Nitroglycerin 2% Ointment 1 INCH/1 GM Packet ONE (22:55)
[2019-03-24] MEDS ORDERED: Aspirin Chewable 81 MG TAB ONE (22:55)
[2019-03-25 01:17] LABS: Troponin I 0.021 ng/mL (< 0.028)
[2019-03-25 04:48] LABS: Troponin I 0.017 ng/mL (< 0.028)
[2019-03-25] MEDS ORDERED: Dextrose 5% in Water 1,000 ML IV PRN (05:32)
[2019-03-25] MEDS ORDERED: Dextrose 50% Abboject 50 ML SYRINGE SLOW IVP PRN (05:32)
--- NOTE | 2019-03-25 05:38 | PDOC.HHP ---
Hospitalist HPI - History of Present Illness Chest pain History of Present Illness: has a history of recent NSTEMI and STENT placement to the LAD about 10 days ago. He says that when he went home he continued to have some chest pain off and on. He says that yesterday he developed some pressure in his chest on the left side. He says it was non-radiating, and worse with a cough. He says it is not similar to what he experienced before. There is some shortness of breath associated with it as well as nausea. He denies any diaphoresis, and positin does not change the pain. Hospitalist ROS - Review of Systems Constitutional: denies: fever, chills, sweats, weakness, malaise, other Eyes: denies: pain, vision change, conjunctivae inflammation, eyelid inflammation, redness, other ENT: denies: ear pain, ear discharge, nose pain, nose discharge, nose congestion , mouth pain, mouth swelling, throat pain, throat swelling, other Respiratory: denies: cough, dry, shortness of breath, hemoptysis, SOB with excertion, pleuritic pain, sputum, wheezing, other Gastrointestinal: reports: nausea, vomiting Genitourinary: denies: dysuria, frequency, incontinence, hematuria, retention, other Musculoskeletal: reports: neck pain. denies: shoulder pain, arm pain, back pain , hand pain, leg pain, foot pain, other Neurological: denies: weakness, numbness, incoordination, change in speech, confusion, seizures, other Hospitalist History - Past Medical History Cardiac: reports: CAD, HTN, Hyperlipidemia Infectious Disease: reports: HIV - Past Surgical History Past Surgical History: reports: Other (STENT to LAD Left wrist surgery Knee Surgery Ear syrgery) - Family History Family History: reports: cardiac disorder (parents with CAD) - Social History Smoking Status: Never smoker Alcohol: reports: None Activity level: independent ambulation Other Social History: Full Code ALLERGIES: NKDA - Exam General Appearance: NAD, awake alert Eye: PERRL, anicteric sclera ENT: normocephalic atraumatic, no oropharyngeal lesions, moist mucosa Heart: RRR, no murmur, no gallops, no rubs, normal peripheral pulses Respiratory: CTAB, no wheezes, no rales, no ronchi, normal chest expansion, no tachypnea (+ mild re-prodicible chest wall tenderness) Gastrointestinal: soft, non-tender, non-distended, normal bowel sounds, no palpable masses, no hepatomegaly, no splenomegaly, no bruit, no guarding Extremities: no cyanosis, no clubbing, no edema Skin: normal turgor Neurological: cranial nerve grossly intact, normal sensation to touch, no weakness, no focal deficits Psychiatric: normal affect, normal behavior, A&O x 3 Hospitalist Results - Labs Result Diagrams: 03/24/19 21:54 03/24/19 21:54 Lab results: WBC 9.2 thou/uL (4.8-10.8) 03/24/19 21:54 Hgb 14.3 g/dL (14.0-18.0) 03/24/19 21:54 Hct 42.5 % (42.0-52.0) 03/24/19 21:54 MCV 96.7 fL (78.0-98.0) 03/24/19 21:54 Plt Count 319 thou/uL (130-400) 03/24/19 21:54 Neutrophils % 51.8 % (42.0-75.0) 03/24/19 21:54 Sodium 139 mmol/L (136-145) 03/24/19 21:54 Potassium 3.8 mmol/L (3.5-5.1) 03/24/19 21:54 Chloride 107 mmol/L (98-107) 03/24/19 21:54 Carbon Dioxide 23 mmol/L (22-29) 03/24/19 21:54 BUN 14 mg/dL (8.4-25.7) 03/24/19 21:54 Creatinine 1.20 mg/dL (0.7-1.3) 03/24/19 21:54 Glucose 109 mg/dL (70-105) H 03/24/19 21:54 Calcium 10.0 mg/dL (7.8-10.44) 03/24/19 21:54 Total Bilirubin 0.6 mg/dL (0.2-1.2) 03/24/19 21:54 AST 19 U/L (5-34) 03/24/19 21:54 ALT 22 U/L (8-55) 03/24/19 21:54 Alkaline Phosphatase 97 U/L (40-110) 03/24/19 21:54 Creatine Kinase 47 U/L (30-200) 03/24/19 21:54 Troponin I 0.017 ng/mL (< 0.028) 03/25/19 04:06 Serum Total Protein 8.3 g/dL (6.0-8.3) 03/24/19 21:54 Albumin 4.5 g/dL (3.5-5.0) 03/24/19 21:54 Lipase 54 U/L (8-78) 03/24/19 21:54 Hospitalist H&P A/P - Problem (1) Chest pain Code(s): R07.9 - CHEST PAIN, UNSPECIFIED Status: Acute (2) Diabetes mellitus type 2 in nonobese Code(s): E11.9 - TYPE 2 DIABETES MELLITUS WITHOUT COMPLICATIONS Status: Acute (3) CAD (coronary artery disease) Code(s): I25.10 - ATHSCL HEART DISEASE OF [place] CORONARY ARTERY W/O ANG PCTRS Status: Acute (4) BPH (benign prostatic hyperplasia) Code(s): N40.0 - BENIGN PROSTATIC HYPERPLASIA WITHOUT LOWER URINRY TRACT SYMP Status: Chronic (5) HIV infection Code(s): B20 - HUMAN IMMUNODEFICIENCY VIRUS [HIV] DISEASE Status: Chronic - Plan Plan: * Chest pain- atypical- however with recent NSTEMI and STENT will check a stress test. Will also check a D- Dimer due to the atypical nature of the pain. Place him on aspirin and nitrates. Continue Brillinta and Lipitor. Consider low dose beta-sheree. * HIV- continue his home medications. He does not want his family to know his HIV status * DM- continue SSI * BPH- stable
[2019-03-25] MEDS ORDERED: Acetaminophen 325 MG TAB ONE (06:00)
[2019-03-25] MEDS ORDERED: Nitroglycerin 2% Ointment 1 INCH/1 GM Packet TOP SCH (06:00)
[2019-03-25] MEDS: Acetaminophen 325 MG TAB PO PRN ×2 (06:02→22:06)
[2019-03-25] MEDS ORDERED: Enoxaparin Sodium 40 MG/0.4 ML SYRINGE SC SCH (09:00)
[2019-03-25] MEDS ORDERED: Aspirin 325 mg Enteric Coated Tablet PO SCH (09:00)
[2019-03-25] MEDS ORDERED: Isosorbide Mononitrate (ER) 30 MG TAB PO SCH (09:15)
[2019-03-25] MEDS ORDERED: Ondansetron PF 4 MG/2 ML Vial IVP PRN (09:28)
[2019-03-25] MEDS ORDERED: Ondansetron ODT 4 MG TAB PO PRN (09:28)
[2019-03-25] MEDS ORDERED: Ondansetron PF 4 MG/2 ML Vial ONE (10:31)
[2019-03-25] MEDS ORDERED: Morphine 2 MG/ML SYRINGE ONE (10:31)
[2019-03-25] MEDS ORDERED: Famotidine 20 MG TAB ONE (10:31)
[2019-03-25] MEDS ORDERED: Aspirin Chewable 81 MG TAB ONE (10:31)
[2019-03-25] MEDS ORDERED: Enoxaparin Sodium 40 MG/0.4 ML SYRINGE ONE (10:32)
[2019-03-25] MEDS: Famotidine 20 MG TAB PO SCH ×2 (10:45→22:05)
[2019-03-25] MEDS: TICAGRELOR 90 MG TABLET PO SCH ×2 (10:45→22:13)
[2019-03-25] MEDS: Aspirin 81 mg Enteric Coated Tablet PO SCH (10:45)
[2019-03-25] MEDS: Morphine 2 MG/ML SYRINGE SLOW IVP PRN ×3 (10:46→22:12)
[2019-03-25 15:13] VITALS: BMI 32.7
[2019-03-25] MEDS ORDERED: Naproxen 500 MG TAB PO SCH (17:00)
[2019-03-25] MEDS ORDERED: DARUNAVIR ETHANOLATE PO SCH (21:00)
[2019-03-25] MEDS ORDERED: Atorvastatin Calcium 40 MG TAB PO SCH (21:00)
[2019-03-26 06:10] LABS: #Basophils 0.1 thou/uL (0.0-0.2); #Eosinphils 0.8 thou/uL (0.0-0.7); #Monocytes 0.9 thou/uL (0.11-0.59); #Neutrophils 3.3 thou/uL (1.40-6.50); %Eosinophils 10.8 % (0.0-10.0); %Lymphocytes 28.1 % (21.0-51.0); %Monocytes 12.8 % (0.0-10.0); %Neutrophils 47.4 % (42.0-75.0); Hemoglobin 12.7 g/dL (14.0-18.0); Mean Corpuscular HGB CONC 34.7 g/dL (32.0-36.0); Mean Corpuscular Hemoglobin 33.6 pg (27.0-31.0); Mean Corpuscular Volume 96.7 fL (78.0-98.0); Platelet Count 262 thou/uL (130-400); RBC Distribution Width 11.8 % (11.5-14.5); Red Blood Cell (RBC) Count 3.77 mill/uL (4.70-6.10)
[2019-03-26 06:43] LABS: Anion Gap 14 mmol/L (10-20); BUN (Urea Nitrogen) 17 mg/dL (8.4-25.7); Calc. Creatinine Clearance 102 mL/min (70-130); Calcium 9.1 mg/dL (7.8-10.44); Carbon Dioxide 21 mmol/L (22-29); Cardiac Risk 3.4 (Less than 4.5); Chloride 109 mmol/L (98-107); Cholesterol 122 mg/dl (< 200 Desired); Estimated GFR-MDRD 57; Glucose 98 mg/dL (70-105); HDL Cholesterol 36 mg/dL (>60 Neg Risk); LDL Cholesterol, Calculated 59 mg/dL; Potassium 4.1 mmol/L (3.5-5.1); Sodium 140 mmol/L (136-145); Triglycerides 136 mg/dL (Less than 150)
[2019-03-26] MEDS ORDERED: Isosorbide Mononitrate (ER) 30 MG TAB PO SCH (09:00)
[2019-03-26] MEDS ORDERED: Naproxen 500 MG TAB PO SCH (09:00)
[2019-03-26] MEDS: Famotidine 20 MG TAB PO SCH (09:16)
[2019-03-26] MEDS: Aspirin 81 mg Enteric Coated Tablet PO SCH (09:16)
[2019-03-26] MEDS: TICAGRELOR 90 MG TABLET PO SCH (09:17)
[2019-03-26] MEDS: Acetaminophen 325 MG TAB PO PRN (09:20)
[2019-03-26 12:15] VITALS: BP 100/57; TEMP 98.6
--- NOTE | 2019-03-26 20:24 | DIS ---
DATE OF ADMISSION: 03/24/2019 DATE OF DISCHARGE: 03/26/2019 DISCHARGE DISPOSITION: Home. FOLLOWUP: 1. Follow up with primary care physician, Dr. Chris Basurto in 1 week. 2. Follow up with Dr. Deo Luu as scheduled. ALLERGIES: NO KNOWN DRUG ALLERGIES. DISCHARGE MEDICATIONS: 1. Naproxen 500 mg b.i.d. for next 9 days. 2. Protonix 40 mg daily for next 2 weeks. 3. All other home medications were left unchanged. The patient was seen on the day of discharge. Denies any new complaints. No chest pain reported. His vital signs on the day of discharge showed temperature 97.9, pulse of 67, respirations of 18, blood pressure of 101/59. INPATIENT FROZEN PIE MAKER: Cardiology, Dr. Deo Luu. DIAGNOSTIC TESTS: Echocardiogram showed left ventricular ejection fraction 50% to 55% with mild mitral regurgitation, mild tricuspid regurgitation. Chest x-ray was negative for infiltrate. BRIEF HOSPITAL COURSE: The patient is a 54-year-old male with recent [id number] [place] requiring bare metal stent placement to the LAD, currently on aspirin and Brilinta, presented to the hospital with chest discomfort. Please refer to the history and physical for further details. The patient was admitted to the hospital with a diagnosis of chest discomfort, rule out acute coronary syndrome. His serial troponins remain negative. He underwent echocardiogram as discussed above. Dr. Luu felt that his pain was pleuritic in nature. He started him on naproxen 500 mg b.i.d. All other home medications were left unchanged. His chest discomfort has improved. His creatinine on the day of discharge is 1.32 compared to 1.20 on admission. He was advised to check his creatinine after 3 to 4 days. PPIs were added while on NSAIDs. He has been cleared by Dr. Luu for discharge. FINAL DIAGNOSES: 1. Pleuritic chest pain. 2. Recent [id number] myocardial infarction. 3. Coronary artery disease, status post recent bare metal stent placement. 4. Dyslipidemia. 5. Chronic kidney disease stage 2 with slight elevation of creatinine. 6. Obesity with a BMI of 32.7. 7. Hyperlipidemia. 8. History of HIV. Please note that his family is unaware of this diagnosis. PLAN: Plan of care was discussed with the patient in detail, he stated understanding. Job ID: [id number]
== END 2019-03-26 16:36 | disposition home or self-care (01) ==
LOC: ERS 21:39 → ERHOLD 23:09 → 2SW 23:59
PROVIDERS: ADMIT Internal Medicine; ATTEND Internal Medicine
DX: R07.81 Pleurodynia (principal); I25.2 Old myocardial infarction; I25.10 Atherosclerotic heart disease of native coronary artery without angina pectoris; E78.5 Hyperlipidemia, unspecified; E11.22 Type 2 diabetes mellitus with diabetic chronic kidney disease; N18.2 Chronic kidney disease, stage 2 (mild); N40.0 Benign prostatic hyperplasia without lower urinary tract symptoms; E66.9 Obesity, unspecified; Z68.32 Body mass index [BMI] 32.0-32.9, adult; Z21 Asymptomatic human immunodeficiency virus [HIV] infection status; Z79.02 Long term (current) use of antithrombotics/antiplatelets; Z79.82 Long term (current) use of aspirin; Z79.84 Long term (current) use of oral hypoglycemic drugs; Z79.899 Other long term (current) drug therapy; Z95.5 Presence of coronary angioplasty implant and graft
CPT/HCPCS: 36415; 36416; 71045; 80048; 80053; 80061; 82550; 83690; 84484; 85025; 85379; 93005; 93306; 96361; 96372; 96374; 96375; 96376; G0378; J1650; J2270; J2405; Q0162

== ENCOUNTER 2019-04-30 15:43 | Emergency (ER) | payer OTHER ==
[2019-04-30] MEDS ORDERED: Fluorescein Opthalmic Strip ONE (17:49)
[2019-04-30] MEDS ORDERED: Proparacaine 0.5% Opth 15 ML BOT ONE (17:49)
== END 2019-04-30 19:12 | disposition home or self-care (01) ==
LOC: ERS 15:43
DX: B02.9 Zoster without complications (principal); E11.9 Type 2 diabetes mellitus without complications; B20 Human immunodeficiency virus [HIV] disease; F41.9 Anxiety disorder, unspecified; I25.2 Old myocardial infarction; Z86.718 Personal history of other venous thrombosis and embolism; Z79.899 Other long term (current) drug therapy; Z79.84 Long term (current) use of oral hypoglycemic drugs
CPT/HCPCS: 99283

== ENCOUNTER 2019-11-28 18:24 | Emergency (ER) | payer OTHER, SELFPAY ==
[2019-11-29 13:19] LABS: SARS-CoV-2 MS2 Positive; SARS-CoV-2 N Gene Negative; SARS-CoV-2 S Gene Negative; SARS-CoV-2 orf1ab Negative
== END 2019-11-28 18:38 | disposition home or self-care (01) ==
LOC: ERS 18:24
DX: J02.9 Acute pharyngitis, unspecified (principal); R09.89 Other specified symptoms and signs involving the circulatory and respiratory systems; Z20.828 Contact with and (suspected) exposure to other viral communicable diseases
CPT/HCPCS: 87635; 99283; U0003

== ENCOUNTER 2019-12-15 14:05 | Emergency (ER) | payer BC, OTHER ==
[2019-12-16 14:39] LABS: SARS-CoV-2 MS2 Positive; SARS-CoV-2 N Gene Negative; SARS-CoV-2 S Gene Negative; SARS-CoV-2 orf1ab Negative
== END 2019-12-15 15:05 | disposition home or self-care (01) ==
LOC: ERS 14:05
DX: R05 Cough (principal); R51 Headache; R19.7 Diarrhea, unspecified; Z20.828 Contact with and (suspected) exposure to other viral communicable diseases; I25.2 Old myocardial infarction; E11.9 Type 2 diabetes mellitus without complications; B20 Human immunodeficiency virus [HIV] disease; F41.9 Anxiety disorder, unspecified; Z86.718 Personal history of other venous thrombosis and embolism
CPT/HCPCS: 87635; 99284; U0003